=== PATIENT | male | born 1995 ===

== ENCOUNTER 2017-02-20 00:13 | Observation (INO) | payer SELFPAY ==
[2017-02-20 00:21] VITALS: BMI 22.1
[2017-02-20 00:23] VITALS: TEMP 97.8; O2SAT 98
--- NOTE | 2017-02-20 00:35 | ED PDOC ---
HPI: Psych/Substance Abuse Time Seen by Provider: 02/20/17 00:15 Chief Complaint (Nursing): Alcohol Ingestion Chief Complaint (Provider): Alcohol Ingestion ED Caveat: Intoxicated (ETOH) History/Exam Limitations: intoxication (ETOH) Onset/Duration Of Symptoms: Mins (prior to arrival) Current Symptoms Are (Timing): Still Present Additional Complaint(s): Jeffrey Bridges is a 21 year old male who presents to the emergency department via [facility] department for intoxication evaluation after patient was found agitated and combative prior to arrival. PMD: none provided Past Medical History Reviewed: Historical Data, Nursing Documentation, Vital Signs Vital Signs: Last Vital Signs Temp 97.8 F 02/20/17 00:21 Pulse 132 H 02/20/17 00:21 Resp 22 02/20/17 00:21 BP 120/84 02/20/17 00:21 Pulse Ox 98 02/20/17 00:21 - Family History Family History: States: Unknown Family Hx - Allergies Allergies/Adverse Reactions: Allergies Allergy/AdvReac Type Severity Reaction Status Date / Time No Known Allergies Allergy Verified 02/20/17 00:20 Review of Systems Review Of Systems: ROS cannot be obtained secondary to pt's inabilty to answer questions. (intoxication) Physical Exam - Reviewed Nursing Documentation Reviewed: Yes Vital Signs Reviewed: Yes - Physical Exam Appears: Positive for: Well (but agitated and belligerent), Non-toxic, No Acute Distress Head Exam: Positive for: ATRAUMATIC, NORMAL INSPECTION, NORMOCEPHALIC Skin: Positive for: Normal Color Cardiovascular/Chest: Positive for: Regular Rate, Rhythm Respiratory: Positive for: Normal Breath Sounds. Negative for: Respiratory Distress Extremity: Positive for: Normal ROM Neurologic/Psych: Positive for: Alert - Laboratory Results Result Diagrams: 02/20/17 00:55 02/20/17 00:55 - ECG O2 Sat by Pulse Oximetry: 98 (RA) Pulse Ox Interpretation: Normal Medical Decision Making Medical Decision Making: Initial Impression: ETOH intoxication Initial Plan: * Alcohol serum * Labs * Drug screen, urine * Haldol 5mg IM * Ativan 2mg * Restraint * ED OBS Time: 448 --Potassium supplement ordered. Time: 629 -- Upon provider reevaluation, patient is awake, alert, sober, ambulating in no distrese and requires no further treatment in the ED at this time. Patient will be discharged to police department. There is agreement to discharge plan. Return if symptoms persist or worsen. Clinical Impression: ETOH abuse Scribe Attestation: Documented by Melissa Priest, acting as a scribe for Valerie Ruby MD. Provider Scribe Attestation: All medical record entries made by the Scribe were at my direction and personally dictated by me. I have reviewed the chart and agree that the record accurately reflects my personal performance of the history, physical exam, medical decision making, and the department course for this patient. I have also personally directed, reviewed, and agree with the discharge instructions and disposition. ED OBSERVATION Date of observation admission: 02/20/17 Time of observation admission: 00:00 - Observation admission statement Patient is being placed in observation because:: Agitation and ETOH intoxication - Goals of Observation Goals of observation are:: clinical sobriety and resolution of agitation - Progress Note Progress Note: Time: 0130 --Patient is resting comfortably with stable vital signs. Time: 0300 --Patient continues to rest comfortably. Time: 0430 --Resting comfortably with stable vital signs. Time: 0600 --Resting comfortably with stable vital signs. Disposition - Clinical Impression Clinical Impression: Alcohol intoxication - Patient ED Disposition Is Patient to be Admitted: No Counseled Patient/Family Regarding: Diagnosis - Disposition Disposition: Discharged/Transfer to Law Enforcement Disposition Time: 06:00 Condition: IMPROVED
[2017-02-20 01:21] LABS: BASO # 0.1 K/uL (0.0-0.2); BASO % 0.6 % (0.0-2.0); EOS # 0.1 K/uL (0.0-0.7); EOS % 1.4 % (0.0-4.0); HEMOGLOBIN 14.6 g/dL (12.0-18.0); LYMPH % 30.5 % (20.0-40.0); MEAN CELL VOLUME 86.8 fl (80.0-94.0); MEAN CORPUSCULAR HEMOGLOBIN 29.3 pg (27.0-31.0); MEAN CORPUSCULAR HGB CONC 33.7 g/dL (33.0-37.0); MEAN PLATELET VOLUME 7.9 fl (7.2-11.7); MONO # 0.5 K/uL (0.0-0.8); NEUT # 6.1 K/uL (1.8-7.0); NEUT % 62.5 % (50.0-75.0); RBC 4.99 Mil/uL (4.40-5.90); RED CELL DISTRIBUTION WIDTH 12.6 % (11.5-14.5); WHITE BLOOD COUNT 9.8 K/uL (4.8-10.8)
[2017-02-20 01:32] LABS: ALB/GLOB RATIO 1.5 (1.0-2.1); ALBUMIN 4.6 g/dL (3.5-5.0); ALT/SGPT 28 U/L (21-72); AST/SGOT 26 U/L (17-59); BLOOD UREA NITROGEN 14 mg/dl (9-20); CALCIUM 8.8 mg/dL (8.4-10.2); GFR AFRICAN-AMERICAN > 60; GFR NON-AFRICAN AMERICAN > 60
[2017-02-20] MEDS ORDERED: Potassium Chloride 20 mEq ER Tab PO ONE ×2 (04:48→06:38)
[2017-02-20 05:53] VITALS: BP 118/76; PULSE 81; RESP 14
== END 2017-02-20 06:52 | disposition home or self-care (01) ==
LOC: H.ER 00:13 → H.EROBSV 00:30
PROVIDERS: ADMIT Emergency Medicine; ATTEND Emergency Medicine
DX: F10.129 Alcohol abuse with intoxication, unspecified (principal); Y90.8 Blood alcohol level of 240 mg/100 ml or more
CPT/HCPCS: 80053; 85025; 96372; 99283; G0378; G0480; J1630; J2060